=== PATIENT | female | born 1940 | race Caucasian/White ===

== ENCOUNTER 2024-06-03 18:08 | Inpatient (IN) ==
[2024-06-03] MEDS: Acetaminophen IV 1 GM/100ML 1,000 MG/100 ML BAG IV ONE (19:36)
[2024-06-03 21:25] LABS: ABS Lymphocytes 0.7 10^3/uL (1.0-4.8); ABS Monocytes 0.7 10^3/uL (0.0-0.9); ABS Neutrophils 12.2 10^3/uL (1.5-7.6); ABS Nucleated RBC 0.01 10^3/ul; Eosinophil % 0.1 %; Hematocrit 37.5 % (35-45); Hemoglobin 12.5 g/dL (11.5-14.3); Mean Corpuscular Hemoglobin 30.3 pg (27-33); Mean Corpuscular Hgb Conc 33.4 g/dL (31-36); Mean Corpuscular Volume 90.8 fL (80-97); Mean Platelet Volume 7.8 fL (7.5-11.2); Platelet Count 196 10^3/uL (150-450); Red Blood Count 4.13 10^6/uL (3.63-4.92); Red Cell Distribution Width 13.5 % (12-17); White Blood Count 13.6 10^3/uL (3.8-11.8)
[2024-06-03 22:22] LABS: ALT 17 U/L (7-52); Albumin 3.7 g/dL (3.2-5.2); Albumin/Globulin Ratio 1.6 (1-3); Alkaline Phosphatase 87 U/L (35-149); Anion Gap 11 mmol/L (2-16); Blood Urea Nitrogen 24 mg/dL (6-24); CO2 Carbon Dioxide 22 mmol/L (22-32); Calcium 9.1 mg/dL (8.6-10.3); Chloride 100 mmol/L (101-111); Creatinine, Serum 0.94 mg/dL (0.51-0.95); Globulin 2.3 g/dL (2-4); Glucose 105 mg/dL (70-100); Sodium 133 mmol/L (135-145); Total Bilirubin 0.8 mg/dL (0.2-1.0); eGFR CKD-EPI 59.1 (>60)
[2024-06-04] MEDS: Morphine 2 MG/ML SYRINGE IV PRN (07:30)
[2024-06-04 07:52] LABS: Potassium Redraw 4.5 mmol/L (3.5-5.0)
[2024-06-04 12:06] LABS: Urine Appearance Clear; Urine Bilirubin Negative (Negative); Urine Blood Negative (Negative); Urine Color Light-Yellow; Urine Glucose Negative (Negative); Urine Ketones 1+ (Negative); Urine Nitrite Negative (Negative); Urine Protein Negative (Negative); Urine Specific Gravity 1.018 (1.002-1.030); Urine Urobilinogen Negative (Negative); Urine pH 6.5 (5.0-8.0)
[2024-06-05] MEDS: Acetaminophen IV 1 GM/100ML 1,000 MG/100 ML BAG IV PRN (05:27)
[2024-06-05 08:36] LABS: ABS Eosinophils 0.1 10^3/uL (0.0-0.5); ABS Lymphocytes 0.8 10^3/uL (1.0-4.8); ABS Monocytes 0.8 10^3/uL (0.0-0.9); ABS Neutrophils 7.7 10^3/uL (1.5-7.6); Eosinophil % 1.2 %; Hematocrit 37.7 % (35-45); Hemoglobin 12.8 g/dL (11.5-14.3); Lymphocyte % 8.8 %; Mean Corpuscular Hemoglobin 31.3 pg (27-33); Mean Corpuscular Hgb Conc 34.1 g/dL (31-36); Mean Corpuscular Volume 91.8 fL (80-97); Mean Platelet Volume 7.7 fL (7.5-11.2); Platelet Count 172 10^3/uL (150-450); Red Blood Count 4.11 10^6/uL (3.63-4.92); Red Cell Distribution Width 13.5 % (12-17); White Blood Count 9.4 10^3/uL (3.8-11.8)
[2024-06-05] MEDS ORDERED: ceFAZolin 2 GM in NS PREMIX 2 GM/100 ML BAG IVPB ONE (09:39)
[2024-06-05 09:54] LABS: Calcium 8.2 mg/dL (8.6-10.3); Creatinine, Serum 0.9 mg/dL (0.51-0.95); Potassium 4.5 mmol/L (3.5-5.0); eGFR CKD-EPI 62.3 (>60)
[2024-06-05] MEDS ORDERED: Propofol 10 MG/ML 20 ML BTL ONE (10:29)
[2024-06-05] MEDS ORDERED: Phenylephrine 40 mcg/mL 10mL (400mcg) SYRINGE ONE (10:29)
[2024-06-05] MEDS ORDERED: Lidocaine 2% PF 5 ML VIAL ONE (10:29)
[2024-06-05] MEDS ORDERED: Rocuronium 50 mg VIAL 10 mg/ml 5 ml VIAL (50 mg) ONE (10:29)
[2024-06-05] MEDS ORDERED: Ondansetron 4 mg VIAL 2 MG/ML 2 ml VIAL ONE (10:29)
[2024-06-05] MEDS ORDERED: Dexamethasone IV 4 MG/ML VIAL 1 ml VIAL ONE (10:29)
[2024-06-05] MEDS ORDERED: Midazolam 2 mg/2 ml VIAL 1 mg/ml 2 ml VIAL (2 mg) ONE (10:30)
[2024-06-05] MEDS ORDERED: fentaNYL 100 mcg/2 ml 50 MCG/ML VIAL ONE ×4 (10:30→14:15)
[2024-06-05] MEDS ORDERED: Bupivacaine 0.5% SDV PF 30ML VIAL ONE (10:54)
[2024-06-05] MEDS ORDERED: Acetaminophen IV 1 GM/100ML 1,000 MG/100 ML BAG IV ONE (12:10)
[2024-06-05] MEDS ORDERED: Naloxone 0.4 mg VIAL 0.4 mg/ml 1 ml VIAL IV PRN (13:16)
[2024-06-05] MEDS ORDERED: Ondansetron 4 mg VIAL 2 MG/ML 2 ml VIAL IV PRN ×2 (13:16→14:59)
[2024-06-05] MEDS: fentaNYL 100 mcg/2 ml 50 MCG/ML VIAL IV PRN (13:26)
[2024-06-05 13:53] LABS: Hematocrit 38.6 % (35-45); Hemoglobin 12.8 g/dL (11.5-14.3)
[2024-06-05] MEDS ORDERED: NS 0.45% 1000 ml BAG 1,000 ML IV SCH (14:00)
[2024-06-05] MEDS ORDERED: Senna TAB 8.6 mg TAB PO PRN ×2 (14:59)
[2024-06-05] MEDS ORDERED: Magnesium Hydroxide LIQ 30 ML UDC PO PRN ×2 (14:59)
[2024-06-05] MEDS ORDERED: Morphine 2 MG/ML SYRINGE IV PRN (14:59)
[2024-06-05] MEDS ORDERED: Polyethylene Glycol 3350 17 GM PACKET PO PRN ×2 (14:59)
[2024-06-05] MEDS: Buffered Lidocaine 1% SYRIN 1 ml INTRADERM ONE (15:06)
[2024-06-05] MEDS: Lactated Ringers 1000 ml BAG 1,000 ML IV SCH (15:06)
[2024-06-05] MEDS: Lactated Ringers 1000 ml BAG 1,000 ML IV ONE (16:27)
[2024-06-05] MEDS: ceFAZolin 1 GM ADVAN 1 GM in NS 0.9% 50 ML 50 ML IVPB SCH (20:38)
[2024-06-05] MEDS: Magnesium Hydroxide LIQ 30 ML UDC PO SCH (20:39)
[2024-06-05] MEDS ORDERED: Magnesium Hydroxide LIQ 30 ML UDC PO SCH (21:00)
[2024-06-06 06:42] LABS: Hematocrit 35.1 % (35-45); Hemoglobin 11.9 g/dL (11.5-14.3); Mean Platelet Volume 8.2 fL (7.5-11.2); Platelet Count 182 10^3/uL (150-450)
[2024-06-06 07:16] LABS: Calcium 8.3 mg/dL (8.6-10.3); Creatinine, Serum 1.11 mg/dL (0.51-0.95); Potassium 4.5 mmol/L (3.5-5.0); eGFR CKD-EPI 48.4 (>60)
[2024-06-06] MEDS: Enoxaparin 30 MG/0.3 ML SYR SUBCUT SCH (12:42)
[2024-06-07 06:29] LABS: Hematocrit 30.5 % (35-45); Hemoglobin 10.3 g/dL (11.5-14.3); Mean Platelet Volume 8.1 fL (7.5-11.2); Platelet Count 160 10^3/uL (150-450)
[2024-06-07 06:54] LABS: Creatinine, Serum 0.94 mg/dL (0.51-0.95); Potassium 4.5 mmol/L (3.5-5.0); eGFR CKD-EPI 59.1 (>60)
[2024-06-08 06:45] LABS: Hematocrit 28.2 % (35-45); Hemoglobin 9.6 g/dL (11.5-14.3); Platelet Count 167 10^3/uL (150-450)
[2024-06-08 07:02] LABS: Calcium 7.9 mg/dL (8.6-10.3); Creatinine, Serum 0.92 mg/dL (0.51-0.95); Potassium 4.4 mmol/L (3.5-5.0); eGFR CKD-EPI 60.6 (>60)
[2024-06-08 09:12] LABS: Rapid COVID-19 Molecular Undetected (Undetected)
[2024-06-08 10:43] VITALS: BP 120/60
== END 2024-06-08 11:40 | DRG 522 ==
LOC: ED 18:08 → EDHOLD 18:08 → SSU 06-04 07:57
PROVIDERS: ADMIT Internal Medicine; ATTEND Internal Medicine